=== PATIENT | female | born 1965 | race Caucasian/White ===

== ENCOUNTER → 2021-02-08 | Outpatient (CLI) | payer BC | LOC: MRI 02-04 11:00 | DX: R51.9 Headache, unspecified (principal); R42 Dizziness and giddiness; R93.0 Abnormal findings on diagnostic imaging of skull and head, not elsewhere classified | CPT/HCPCS: 70553; A9577 ==

== ENCOUNTER → 2022-01-24 | Outpatient (CLI) | payer BC | LOC: KOH-I 14:50 | DX: M79.672 Pain in left foot (principal); M79.671 Pain in right foot | CPT/HCPCS: 73630 ==